=== PATIENT | male | born 1970 | race Caucasian/White ===

== ENCOUNTER 2017-03-20 23:27 | Emergency (ER) | payer OTHER ==
[2017-03-20] MEDS ORDERED: ASPIRIN (CHEWABLE) 81 MG TAB ONE (23:36)
[2017-03-20] MEDS ORDERED: NITROGLYCERIN 0.4 MG 25 EA TAB SL ONE ×2 (23:36→23:49)
[2017-03-20] MEDS ORDERED: ASPIRIN TABLET 325 MG TAB ONE (23:42)
[2017-03-20] MEDS ORDERED: ONDANSETRON INJ 4 MG/2 ML VIAL ONE (23:42)
[2017-03-20] MEDS ORDERED: MORPHINE SULFATE INJ 10 MG/ML VIAL IV ONE (23:45)
[2017-03-20] MEDS ORDERED: MORPHINE SULFATE INJ 10 MG/ML VIAL ONE (23:48)
[2017-03-20] MEDS ORDERED: ONDANSETRON INJ 4 MG/2 ML VIAL IV ONE (23:49)
[2017-03-20] MEDS ORDERED: ASPIRIN (CHEWABLE) 81 MG TAB PO ONE (23:49)
--- NOTE | 2017-03-20 23:58 | ED.PDOC ---
History of Present Illness - General Chief Complaint: Chest Pain/CO Stated Complaint: chest pain Time Seen by Provider: 03/20/17 23:33 Source: patient, RN notes reviewed, Vital Signs reviewed Exam Limitations: no limitations - History of Present Illness Initial Comments: Patient comes in with c/o chest pain for the past 2.5 hours. Pain feels like a vise in his L chest. + nausea/vomiting, SOB and diaphoresis. Had some SLNTG from 10-12 years ago and took one @ home w/o change in his chest pain. Timing/Duration: 1-3 hours Severity/Quality: severe, tightness Location: other - L chest Prior Chest Pain/Cardiac Workup: non-cardiac Improving Factors: nothing Worsening Factors: nothing Nitro Today/Relief: 0.4 mg x 2, provided by ED, mild relief - CP went from 9/10 to 810 but BP now 108/48. Will give NS bolus. Aspirin Treatment Today: 81 mg x 4, provided by ED Associated Symptoms: back pain, nausea/vomiting, shortness of breath Allergies/Adverse Reactions: Allergies NO KNOWN ALLERGY Allergy (Verified 03/20/17 23:37) Home Medications: Ambulatory Orders NK [NK] 03/20/17 Review of Systems - Review of Systems Constitutional: States: diaphoresis EENTM: States: no symptoms reported Respiratory: States: short of breath. Denies: cough Cardiology: States: chest pain. Denies: edema, palpitations, syncope Gastrointestinal/Abdominal: States: nausea, vomiting. Denies: abdominal pain Musculoskeletal: States: no symptoms reported Skin: States: no symptoms reported Neurological: States: no symptoms reported All other Systems: No Change from Baseline Past Medical History (General) - Patient Medical History Hx Cardiac Disorders: No Hx Diabetes: No - Vaccination History Hx Influenza Vaccination: No Family Medical History - Family History Father Family History: Unknown Physical Exam - Physical Exam General Appearance: Alert, Anxious, Ill Appearing, Well Developed, Well Groomed , Well Hydrated, Well Nourished Neck: supple, normal inspection Respiratory: chest non-tender, lungs clear, normal breath sounds, no respiratory distress, no accessory muscle use Cardiovascular/Chest: regular rate, rhythm, no edema, no gallop, no JVD, no murmur Peripheral Pulses: radial,right: 2+, radial,left: 2+, posterior tibialis,right: 2+, posterior tibialis,left: 2+ Gastrointestinal/Abdominal: normal bowel sounds, non tender - reports palpation of upper abdomen causes pressure in his chest but denies abd pain with palpation , soft, no organomegaly Extremity: normal range of motion, non-tender, normal inspection, no pedal edema Neurologic: alert, normal mood/affect, oriented x 3 Skin Exam: diaphoresis Comments: Vital Signs 03/20/17 23:33 Pulse Rate [ 46 L Apical] Respiratory 26 H Rate Blood Pressure 151/101 [Left Arm] O2 Sat by Pulse 98 Oximetry Progress - Progress Progress: 03/21/17 00:03 Patient vomited just after being given Aspirin 324mg PO and SLNTG. Pulse dropped into the 40's. Zofran 4mg IV given then repeated Aspirin and NTG. 03/21/17 00:16 Patient reports that CP has localized more to just L of sternum, not as pervasive. O2 saturation dropped to 86% and not improving with 3L of O2 by nasal canula. Given CP, SOB, bradycardia and hypoxia will get CTA of chest to rule out PE. 03/21/17 01:07 Patient is feeling better. Initial workup is normal. Will recheck cardiac enzymes @ 02:25 03/21/17 03:05 Patient is pain free after Toradol. Awaiting second set of cardiac enzymes. 03/21/17 03:28 Second set of cardiac enzymes are normal. Discussed possibility of pleurisy or GERD. Will follow up with PCP and [facility]. He continues to be pain free. - Results/Orders Results/Orders: Laboratory Tests 03/20/17 03/20/17 03/20/17 23:45 23:45 23:45 WBC 13.7 H RBC 4.57 L Hgb 15.3 Hct 44.8 MCV 98.2 H MCH 33.4 H MCHC 34.2 RDW 13.2 Plt Count 280 MPV 7.7 Absolute Neuts (auto) 10.50 H Absolute Lymphs (auto) 1.80 Absolute Monos (auto) 1.00 H Absolute Eos (auto) 0.40 Absolute Basos (auto) 0.00 Neutrophils % 76.7 Lymphocytes % 12.8 L Monocytes % 7.3 Eosinophils % 2.9 Basophils % 0.3 D-Dimer, Quantitative < 200 Sodium 138 Potassium 3.9 Chloride 103 Carbon Dioxide 26 Anion Gap 12.9 BUN 13 Creatinine 0.81 BUN/Creatinine Ratio 16.0 Random Glucose 126 H Serum Osmolality 277.3 Calcium 9.7 Total Bilirubin 0.8 AST 28 ALT 23 Alkaline Phosphatase 50 Creatine Kinase 128 CK-MB (CK-2) 3.5 CK-MB (CK-2) % Not Reportable Troponin I < 0.02 Serum Total Protein 7.6 Albumin 4.4 Globulin 3.2 Albumin/Globulin Ratio 1.4 Amylase 87 Lipase 37 03/21/17 02:50 WBC RBC Hgb Hct MCV MCH MCHC RDW Plt Count MPV Absolute Neuts (auto) Absolute Lymphs (auto) Absolute Monos (auto) Absolute Eos (auto) Absolute Basos (auto) Neutrophils % Lymphocytes % Monocytes % Eosinophils % Basophils % D-Dimer, Quantitative Sodium Potassium Chloride Carbon Dioxide Anion Gap BUN Creatinine BUN/Creatinine Ratio Random Glucose Serum Osmolality Calcium Total Bilirubin AST ALT Alkaline Phosphatase Creatine Kinase 101 CK-MB (CK-2) 2.7 CK-MB (CK-2) % Not Reportable Troponin I < 0.02 Serum Total Protein Albumin Globulin Albumin/Globulin Ratio Amylase Lipase - EKG/XRAY/CT EKG: Sinus, no ST T wave changes Comments: Rate 66 XRAY: chest - atelectasis bilaterally with poor inspiration per Radiologist CT Ordered: Yes - CTA: No PE Departure - Departure Clinical Impression: Chest pain Qualifiers: Chest pain type: unspecified Qualified Code(s): R07.9 - Chest pain, unspecified Time of Disposition: 03:29 Disposition: Discharge to Home or Self Care Condition: Good Departure Forms: ED Discharge - Pt. Copy, Patient Portal Self Enrollment Instructions: DI for Chest Pain Diet: resume usual diet Activity: increase activity as tolerated Home Medications: Ambulatory Orders NK [NK] 03/20/17 Additional Instructions: Follow up with PCP and get referral to [facility].
[2017-03-21] MEDS ORDERED: SODIUM CHLORIDE 0.9% 1000ML 1,000 ML ONE
[2017-03-21] MEDS ORDERED: SODIUM CHLORIDE 0.9% 1000ML 1,000 ML IVS ONE
--- NOTE | 2017-03-21 00:02 | RAD ---
EXAM DESCRIPTION: Chest,1 View CLINICAL HISTORY: 46 years Male chest pain COMPARISON: None. FINDINGS: Poor depth of inspiration. Heart is upper limits of normal. Small amount of increased density in the lung bases likely secondary to compression of vascular markings and atelectasis. No consolidation or pneumothorax noted. IMPRESSION: Atelectasis in the lung bases with poor depth of inspiration Electronically signed by: Jesi Hugo 03/21/2017 12:01 AM CDT
--- NOTE | 2017-03-21 00:55 | CT ---
EXAM: CT chest angiogram with contrast. INDICATION: Chest pain. TECHNIQUE: Contiguous axial CT images of the chest. Intravenous contrast: Present. Protocol: Pulmonary embolus (PE) protocol angiogram. Reformats: MIPs and MPRs created and utilized. DLP 514 mGy-cm. This exam was performed according to our departmental dose-optimization program, which includes automated exposure control, adjustment of the mA and/or kV according to patient size and/or use of iterative reconstruction technique. Note: LV=left ventricle. RV=right ventricle. COMPARISON: None. FINDINGS: Upper abdomen: Partially imaged. Cholelithiasis Thoracic aorta: Unremarkable. Heart: No right atrial thrombus. RV/LV ratio: Within normal limits. Pulmonary arteries: Technical: Adequate opacification to the level of the segmental vessels. Pulmonary embolus: No low-density filling defect to suggest acute PE. Overall embolic burden: None. Mediastinum: No pathologic sized middle mediastinal lymphadenopathy. Tracheobronchial tree: Unremarkable. Lungs: Lobar consolidation: Negative. Pleural effusion: Negative. Pneumothorax: Negative. Other: There is a 4 mm nodule within the right upper lobe (axial image 26). Bones: Unremarkable. IMPRESSION: 1. No CT evidence of acute PE. 2. 4 mm nodule within the right upper lobe. Recommend follow-up CT in 12 months to assess for stability. Electronically signed by: Braeden Sanderson MD 03/21/2017 12:54 AM CDT Workstation: [id number]
[2017-03-21] MEDS ORDERED: KETOROLAC TROMETHAMINE INJ 30 MG/ML VIAL IV ONE (01:10)
[2017-03-21 03:45] VITALS: BP 117/75; O2SAT 96
== END 2017-03-21 03:42 | disposition home or self-care (01) ==
LOC: ER 23:27
DX: R07.9 Chest pain, unspecified (principal)
CPT/HCPCS: 36415; 71010; 71275; 80053; 82150; 82550; 82553; 83690; 84484; 85025; 85379; 93005; J1885; J2270; J2405; J7030